=== PATIENT | male | born 1985 | race Caucasian/White ===

== ENCOUNTER 2018-04-09 10:11 | Outpatient (CLI) | payer MEDICAID ==
[~2018-04-09] VITALS: Ht 188 cm; Wt 104.3 kg
[2018-04-09] MEDS ORDERED: albuterol 2.5 MG/3 ML nebule NEB ONE (10:35)
== END 2018-04-09 23:59 | disposition home or self-care (01) ==
LOC: RT 10:11
PROVIDERS: ATTEND Student in an Organized Health Care Education/Training Program
DX: R06.09 Other forms of dyspnea (principal); J45.909 Unspecified asthma, uncomplicated; R07.9 Chest pain, unspecified; F17.210 Nicotine dependence, cigarettes, uncomplicated; Z87.09 Personal history of other diseases of the respiratory system
CPT/HCPCS: 94060; 94760

== ENCOUNTER 2024-11-13 19:33 | Emergency (ER) | payer MEDICAID ==
[~2024-11-13] VITALS: Ht 188 cm; Wt 91.6 kg
[2024-11-13 20:07] VITALS: BP 130/81; PULSE 91; RESP 15; O2SAT 97
[2024-11-13] MEDS ORDERED: dexamethasone sod phosphate 10mg/ml inj PO STA (21:31)
[2024-11-13] MEDS ORDERED: AMOX-117 PO (21:34)
[2024-11-13 21:39] VITALS: TEMP 96.8
--- NOTE | 2024-11-13 21:42 | Physician Documentation ---
History of Present Illness ~ Chief Complaint: Facial Swelling Stated Complaint: LIP SWOLLEN Time Seen by MD: 21:24 OK to notify your PCP?: Yes Source: patient Mode of Arrival: POV Exam Limitations: no limitations HPI 39-year-old male presents with upper lip swelling since 4:00 p.m. today. Last night he was bottle feeding some kittens who were up around his face and lips and were suckling on his napier and lips. This morning he woke up with lower lip swelling which resolved throughout the day after taking some ibuprofen but at 4:00 p.m. the upper lip started to swell. He did take some ibuprofen with no relief. He tried icing it also with no relief. He did not taken any Benadryl. He has no wheezing, throat tightness or difficulty breathing. He has no known allergies. No new foods or medications taken today either. Tetanus Within 5 Years: No Medication Reconciliation Allergies: Coded Allergies: No Known Allergies (Unverified , 11/13/24) Scheduled Amox Tr/Potassium Clavulanate (Augmentin 875-125 Tablet), 1 TAB PO Q12H Review of Systems All Other Systems at this time: Reviewed and Negative Physical Exam Vital Signs: RN Vital Signs have been reviewed: Yes, Temperature: 96.8, Source: Temporal, Heart Rate: 91, Respiratory Rate: 15, BP: 130/81, Pulse Oximetry: 97, Weight: 91.600 Pulse Oximetry Reflects: adequate oxygenation Physical Exam General: Alert, no apparent distress. HEENT: PERRL, EOMI, no injection, moist mucous membranes. Upper lip edema, slight erythema to the inner portion of the upper lip. Airway clear. Teeth have dental caries but no gingival edema or swelling. Neck: Full range of motion. No cervical lymphadenopathy. Respiratory: Lungs clear, no respiratory distress. Chest: No accessory muscle use. Cardiovascular: Regular rate and rhythm, no murmurs. Gastrointestinal: Soft, nontender, nondistended. Bowels sounds present. Extremities: Normal range of motion, no deformity. Neurologic: Oriented x4. Psychiatric: Normal mood and affect. Skin: Normal color, warm and dry. No edema, no ecchymosis. Progress Results/Orders Reviewed/noted all lab results: Yes Results/Orders Completed Orders - LISBET BARNES Dexamethasone Inj (Decadron 10mg/Ml Inj) (11/13/24 21:31) Amox Tr/Potassium Clavulanate (Augmentin (11/13/24 21:35) Dexamethasone 6mg Tablet (Dexamethasone (11/13/24 21:40) Dexamethasone Tablet (Decadron Tablet) (11/13/24 21:40) Medications Received in ER Medications (Trade) Dose Ordered Sig/Erica Route PRN Reason Start Time Stop Time Status Last Admin Dose Admin (Augmentin 875-125mg tablet) 1 tab ONCE ONCE PO 11/13/24 21:35 11/13/24 21:41 DC 11/13/24 21:43 1 TAB (Dexamethasone 6mg tablet) 6 mg ONCE STAT PO 11/13/24 21:40 11/13/24 21:41 DC 11/13/24 21:43 6 MG Vital Signs 11/13/24 11/13/24 20:07 21:39 Temp 96.8 96.8 Pulse 91 Resp 15 B/P (MAP) 130/81 Pulse Ox 97 Medical Decision Making Additional info obtained from: old records, family Findings 39-year-old male presents with upper lip swelling. Earlier today he had lower lip swelling which then resolved in his upper lip began to swell this afternoon. His physical exam shows his tongue is normal, no cervical lymphadenopathy,and his airway is nice and clear. There is a red spot to the inner portion of his top lip. He has been around kittens who he may have had an allergic reaction to or been bit by as they were up and around his face and sucking on his lips. I started him on amoxicillin for this reason in case this is due to a kitten bite. I also gave him Decadron while here in the department to help with the edema andin the case of an allergic reaction. I gave him strict return instructions as well as follow up instructions. His airway was clear, his lungs were also clear. I do not see any signs of anaphylaxis or airway compromise. Differential Dx:Considerations: Include: Foreign body Additional Comment Anaphylaxis, angioedema, Andrey's angina, abscess Departure Disposition: HOME / SELF CARE / HOMELESS Impression: Primary Impression: Facial swelling Condition: Stable Discharge Instructions: Animal Bite, Adult, [id number] Additional Instructions: Follow up with her primary care provider within the next week, return back here for any new or worsening symptoms. If the swelling of her lip becomes worse or both lips or tongue start to swell, or have difficult breathing, be seen in the emergency department immediately. I would avoid taking ibuprofen for pain, take Tylenol. Also you can take Benadryl or tomorrow if the swelling does not decrease. Referrals: NO PRIMARY CARE PROVIDER (PCP) Prescriptions Amox Tr/Potassium Clavulanate (Augmentin 875-125 Tablet) 1 Each Tablet 1 TAB PO Q12H for 7 Days, #14 TAB Prov: LISBET BARNES 11/13/24 Education Educated: Patient Educated regarding: diagnosis, treatment, prognosis, need for follow up Additional Comment Medical Screen Exam This patient recieved a medical screening examination. After reviewing the individual's medical complaints with presenting symptoms and performing an appropriate physical examination, it was determined that no immediate life- threatening emergency medical condition is present. This individual is also not a women having contractions. Signature Scribe Signature: . Attestation: Scribed for Lisbet Barnes by Lisbet Ybarra NP . 11/14/24 00:20 Parts of this note were created using [employer] voice recognition software program. While efforts were made to correct any mistakes made by this voice recognition software program, nonsensical phrases may remain in this note. In addition, there may be errors and syntax, grammar, content and spelling. LISBET BARNES Nov 13, 2024 21:42
[2024-11-13] MEDS: DEXAMETHASONE 6 MG TABLET PO STA (21:43)
[2024-11-13] MEDS: amox tr/potassium clavulanate 875/125mg TAB PO ONE (21:43)
== END 2024-11-13 21:45 | disposition home or self-care (01) ==
LOC: ER 19:34
DX: R22.0 Localized swelling, mass and lump, head (principal)
CPT/HCPCS: 99283; J8540